=== PATIENT | male | born 1990 | race Caucasian/White ===

== ENCOUNTER 2016-09-23 06:38 | Day surgery (SDC) | payer OTHER ==
[2016-09-11 16:06] VITALS: BMI 25.0
[2016-09-23] MEDS ORDERED: ePHEDrine SULFATE 50 MG/1 ML AMPULE ONE (07:17)
[2016-09-23] MEDS ORDERED: MIDAZOLAM HCL 2 MG/2 ML SINGLE DOSE VIAL ONE ×2 (07:18)
[2016-09-23] MEDS ORDERED: PROPOFOL 20 ML ONE ×2 (07:18)
[2016-09-23] MEDS ORDERED: ROCURONIUM BROMIDE 50 MG/5 ML VIAL ONE (07:18)
[2016-09-23] MEDS ORDERED: PHENYLEPHRINE HCL 10 MG/1 ML SINGLE DOSE VIAL ONE (07:19)
[2016-09-23] MEDS ORDERED: LIDOCAINE HCL 2% (20ML MULTI-DOSE VIAL) NR ONE (07:26)
[2016-09-23] MEDS ORDERED: DESFLURANE GAS 240 ML BOTTLE IH ONE (07:26)
[2016-09-23] MEDS ORDERED: ACETAMINOPHEN INJECTION 100 ML IVPB ONE (07:27)
[2016-09-23] MEDS ORDERED: LIDOCAINE 1%/EPI 1:100000 (50 ML MULTI DOSE VIAL) ONE (07:48)
--- NOTE | 2016-09-23 07:53 | HP ---
Admitting History and Physical - Admission Chief Complaint: Nasal breathing problems, recucurrent sinus infections History Source: Patient, Medical Record Limitations to Obtaining History: No Limitations - Past Medical History ENT: Yes: Sinusitis Endocrine: Yes: Hypothyroidism - Smoking History Smoking history: Never smoked Have you smoked in the past 12 months: No - Alcohol/Substance Use Hx Alcohol Use: Yes ("MODERATELY") Home Medications - Allergies Allergies/Adverse Reactions: Allergies Allergy/AdvReac Type Severity Reaction Status Date / Time No Known Drug Allergies Allergy Verified 09/11/16 16:06 - Home Medications Home Medications: Ambulatory Orders Levothyroxine [Synthroid -] 125 mcg PO DAILY 09/11/16 Mometasone/Formoterol [Dulera 200 Mcg/5 Mcg Inhaler] 2 inh IH BID 09/11/16 Review of Systems - Review of Systems Constitutional: reports: No Symptoms Eyes: reports: No Symptoms HENT: reports: Nasal Congestion Neck: reports: No Symptoms Cardiovascular: reports: No Symptoms Respiratory: reports: No Symptoms Gastrointestinal: reports: No Symptoms Genitourinary: reports: No Symptoms Musculoskeletal: reports: No Symptoms Integumentary: reports: No Symptoms Neurological: reports: No Symptoms Endocrine: reports: No Symptoms Hematology/Lymphatic: reports: No Symptoms Physical Examination Vital Signs: Vital Signs Temperature 97.6 F 09/23/16 07:10 Pulse Rate 65 09/23/16 07:10 Respiratory Rate 20 09/23/16 07:10 Blood Pressure 113/66 09/23/16 07:10 O2 Sat by Pulse Oximetry (%) 99 09/23/16 07:12 Constitutional: Yes: Well Nourished, No Distress, Calm Eyes: Yes: WNL, Conjunctiva Clear HENT: Yes: WNL, Other (DNS, turbinate hypertrophy) Neck: Yes: WNL Cardiovascular: Yes: WNL Respiratory: Yes: WNL Gastrointestinal: Yes: WNL Extremities: Yes: WNL Integumentary: Yes: WNL Neurological: Yes: WNL ...Motor Strength: WNL Psychiatric: Yes: WNL Problem List - Problems (1) Chronic sinusitis Assessment/Plan: For surgical improvement in sinus problems today. Code(s): J32.9 - CHRONIC SINUSITIS, UNSPECIFIED Qualifiers: Sinusitis location: pansinusitis Qualified Code(s): J32.4 - Chronic pansinusitis Assessment/Plan For OR procedure today
[2016-09-23] MEDS ORDERED: COCAINE HCL 4% TOPICAL SOLUTION 4 ML BOTTLE TP ONE ×2 (08:12→08:46)
[2016-09-23] MEDS ORDERED: ceFAZolin SODIUM 1 GM VIAL IVPB ONE (08:43)
[2016-09-23] MEDS ORDERED: LIDOCAINE 1%/EPI 1:100000 (50 ML MULTI DOSE VIAL) INF ONE (08:45)
[2016-09-23] MEDS ORDERED: ONDANSETRON 4 MG/2 ML VIAL IVPUSH PRN (10:06)
[2016-09-23] MEDS ORDERED: PROMETHAZINE HCL 25 MG/1 ML VIAL IVPUSH PRN (10:06)
[2016-09-23] MEDS ORDERED: oxyCODONE HCL 5 MG TABLET PO PRN (10:06)
[2016-09-23] MEDS ORDERED: LACTATED RINGERS SOLUTION 1,000 ML IV SCH (10:15)
[2016-09-23 10:53] VITALS: TEMP 98.2
[2016-09-23] MEDS ORDERED: oxyCODONE HCL 5 MG TABLET ONE (11:55)
[2016-09-23 12:56] VITALS: BP 131/78; PULSE 72
--- NOTE | 2016-09-24 15:05 | PATH ---
Surgical Pathology Report Patient Name: UMAIR VASQUEZ Med. Rec. #: [id number] /Age/Gender: 1990 (Age: 25) / M Account: [id number] Location: [facility] Taken: 09/23/2016 Received: 09/23/2016 Reported: 09/24/2016 Physicians: Kvng Sage M.D. Specimen(s) Received A: RIGHT ETHMOID TISSUE B: BILATERAL ETHMOID & MAXILLARY SINUS Clinical History Deviated nasal septum Final Diagnosis A. RIGHT ETHMOID, ETHMOIDECTOMY: BENIGN SINONASAL MUCOSA WITH FOCAL ACTIVE AND CHRONIC INFLAMMATION; FRAGMENTS OF SCLEROTIC APPEARING BONE. B. BILATERAL ETHMOID AND MAXILLARY SINUS, MAXILLARY ANTROSTOMY, ETHMOIDECTOMY: BENIGN SINONASAL MUCOSA WITH ACUTE AND CHRONIC INFLAMMATION; SMALL FRAGMENTS OF UNREMARKABLE BONE. Electronically Signed Antonio Myers M.D. Gross Description A. Received in formalin labeled "right ethmoid" is a 0.9 x 0.6 x 0.1 cm lujan irregular portion of cartilage. The specimen is bisected and entirely submitted in one cassette. B. Received in formalin labeled "bilateral ethmoid and maxillary sinus" is a 2.0 x 1.3 x 0.2 cm aggregate of lujan tissue fragments. The formalin is filtered and the specimen is entirely submitted in one cassette, following decalcification. 09/23/201609/23/2016
--- NOTE | 2016-10-26 23:50 | OP ---
DATE OF OPERATION: 09/23/2016 PREOPERATIVE DIAGNOSIS: Deviated septum, turbinate hypertrophy, chronic sinusitis. POSTOPERATIVE DIAGNOSIS: Deviated septum, turbinate hypertrophy, chronic sinusitis. PROCEDURE: Bilateral endoscopic __anterior___ ethmoidectomy, bilateral maxillary antrostomy tissue removal, bilateral frontal sinus balloon Sinuplasty, and sinus navigation inferior turbinate outfracture and cautery. SURGEON: Kvng Sage M.D. ANESTHESIA: General. INDICATION FOR OPERATION: This is a 26-year-old with chronic sinus problems, nasal congestion, who has had multiple courses of antibiotics, nasal spray, decongestant, and has not resolved the infection. DESCRIPTION OF PROCEDURE: Patient was brought into the operating room, placed under general anesthesia. The nose was decongested with 4% cocaine on pledgets and injected with 1% lidocaine with 1:100,000 epinephrine to the lateral nasal wall, inferior turbinates, and septum. A [employer] navigation contractor was calibrated on him, after being prepped and draped, and then his nose was examined. During examination, his deviated septum was noted; however, it appears that the middle meatus and the path of the frontal sinus was open enough to go around it, so a septoplasty was not performed. The frontal sinus seeker was introduced into the left side and pushing the middle turbinate medially, the frontal sinuses were cannulated, after which a Medtronic frontal guided balloon was placed up into the frontal sinus. Also note that the seeker used also a guided instrument, 2 separate insufflations of the balloon was performed and then a cottonoid was instilled into the frontal recess. The opposite side, right side, was approached in the same manner with the seeker, it was guided, and the front of the balloon was placed into the frontal sinus, and 2 separate dilations were performed, and a cottonoid was placed in that _frontal recess____. The uncinate on the left side was removed using a Avalon elevator, then an anterior ethmoidectomy was performed using the microdebrider back to the level of the ground lamella. The ostium was cannulated with a curved guided beaded suction, then a curved microdebrider was used to remove tissue from the maxillary antrum and to widen the ostia anteriorly and inferiorly with the microdebrider blade. The cottonoid was reinstilled into the ethmoid cavity, and the right side middle turbinate was medialized with the Avalon, and then the uncinate was resected using the straight blade. The anterior ethmoidectomy was performed to the level of the ground lamella and the right maxillary ostia was cannulated with the curved beaded suction which was guided, and the guided microdebrider blade was used to remove tissue from the maxillary antrum and widen the ostia inferiorly and anteriorly. The cottonoid was placed into the right ethmoid cavity. Then the inferior turbinates were outfractured with a long nasal speculum, and a bipolar turbinate cautery was used to cauterize by inferior turbinates, first the left than the right, with 3 separate submucosal passes with a setting of 4. After which, the nose was suctioned and a nasal port packing was placed in each ethmoid cavity. The patient was then extubated in the operating room and brought to recovery room in stable condition. Sulaiman [id number] MTDD
== END 2016-09-23 12:55 | disposition home or self-care (01) ==
LOC: JASU-SURG 06:38
PROVIDERS: ATTEND Otolaryngology
PROC: 8E09XBG Computer Assisted Procedure of Head and Neck Region, With Computerized Tomography (ICD-10-PCS; 2016-09-23)
PROC: 099R4ZZ Drainage of Left Maxillary Sinus, Percutaneous Endoscopic Approach (ICD-10-PCS; 2016-09-23)
PROC: 099Q4ZZ Drainage of Right Maxillary Sinus, Percutaneous Endoscopic Approach (ICD-10-PCS; 2016-09-23)
PROC: 09QS4ZZ Repair Right Frontal Sinus, Percutaneous Endoscopic Approach (ICD-10-PCS; 2016-09-23)
PROC: 09QT4ZZ Repair Left Frontal Sinus, Percutaneous Endoscopic Approach (ICD-10-PCS; 2016-09-23)
PROC: 09SL8ZZ Reposition Nasal Turbinate, Via Natural or Artificial Opening Endoscopic (ICD-10-PCS; 2016-09-23)
PROC: 095L8ZZ Destruction of Nasal Turbinate, Via Natural or Artificial Opening Endoscopic (ICD-10-PCS; 2016-09-23)
PROC: 8E09XBZ Computer Assisted Procedure of Head and Neck Region (ICD-10-PCS; principal; 2016-09-23 08:00)
PROC: 09BV4ZZ Excision of Left Ethmoid Sinus, Percutaneous Endoscopic Approach (ICD-10-PCS; 2016-09-23 08:00)
PROC: 09BU4ZZ Excision of Right Ethmoid Sinus, Percutaneous Endoscopic Approach (ICD-10-PCS; 2016-09-23 08:00)
DX: J34.2 Deviated nasal septum (principal); J32.9 Chronic sinusitis, unspecified; J34.3 Hypertrophy of nasal turbinates
CPT/HCPCS: 88304-TC; 94760

== ENCOUNTER 2017-07-25 13:54 | Emergency (ER) | payer BC, OTHER ==
--- NOTE | 2017-07-25 13:55 | PDOC ---
History of Present Illness - History of Present Illness Initial Comments: 07/25/17 16:01 Physical exam: Alert and oriented well-developed well-nourished no acute distress cheerful and cooperative Afebrile, vital signs normal No pallor or icterus. PERRLA, ENT clear Neck supple without bruit mass or nodes Chest clear CV regular without murmur rub or gallop Abdomen nondistended, normal bowel sounds. There is mild to moderate tenderness in the left mid abdomen and left lower quadrant to deep palpation, but no guarding or rebound. There is no CVAT. There is no tenderness along the costal margin or the pelvis. : Testes descended bilaterally, without mass or tenderness. No hernias palpable in the inguinal area. No discharge Neurological intact Skin clear, no rash, adequate turgor and wet mucous membranes Extremities no CCE Impression: The tenderness appears to be left mid abdomen and left lower quadrant. Onset was after a day of vigorous exercise, and the patient runs 5, there is twice daily as well as engaging in weight training. There is the possibility of muscle pain of the abdominal wall. Other possibilities acute diverticulitis, unusual presentation of appendicitis, kidney stone or urinary tract abnormality, gastroenteritis, gastritis, pancreatitis. Plan: Labs and CT. Further medical evaluation treatment depending on results. <Usman Navarrete J - Last Filed: 07/25/17 18:33> - General History Source: Patient, Old Records Exam Limitations: No Limitations - History of Present Illness Initial Comments: 07/25/17 15:11 Chief Complaint: Left lower quadrant pain History of Present Illness: The patient presents with multiple days of left lower quadrant pain that began after a bowel movement. The patient describes the pain as a moderate ache that is constant, but worse with any kind of movement and with palpation of his LLQ, and occasionally radiates to his left testicle. He denies any alleviating factors or taking anything for his pain. The patient denies any heavy lifting prior to the pain, but reports doing some running the day before onset. The patient initially went to Urgent Care for his symptoms but was sent here for further imaging. Review of Systems: He denies any injury to the LLQ or testicle. He denies any associated nausea, vomiting, diarrhea, or constipation. He denies any melena or hematochezia. The patient denies any fevers, chills, cough, shortness of breath , chest pain, hematuria, dysuria, urgency, or hesitancy. Past Medical History: The patient has hx of asthma and hypothyroidism (on synthroid). In September, the patient had a sinectomy of all 6 sinuses for recurrent sinus infections and deviated septum. Surgical History: The patient denies history of any abdominal or kidney surgeries. He denies any colonoscopies. Social History: The patient is very active and runs and lift weights daily. He reports social alcohol use and occasional marijuana use. Denies hx of IV drug use. He denies tobacco use. 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) - Suicide/Smoking/Psychosocial Hx Smoking History: Never smoked Have you smoked in the past 12 months: No Hx Alcohol Use: Yes ("MODERATELY") Drug/Substance Use Hx: Yes (POT ON 09/05/16) Substance Use Type: Alcohol, Marijuana Hx Substance Use Treatment: No <Usman Navarrete - Last Filed: 07/25/17 18:33> <Vickie Peña - Last Filed: 07/25/17 19:33> - Past Medical History Allergies/Adverse Reactions: Allergies Allergy/AdvReac Type Severity Reaction Status Date / Time No Known Drug Allergies Allergy Verified 07/25/17 13:55 Home Medications: Ambulatory Orders Levothyroxine [Synthroid -] 125 mcg PO DAILY 09/11/16 Fluticasone/Vilanterol [Breo Ellipta 100-25 Mcg INH] 1 each IH DAILY 07/25/17 Review of Systems - Review of Systems Able to Perform ROS?: Yes All Other Systems: Reviewed and Negative <Vickie Peña - Last Filed: 07/25/17 19:33> *Physical Exam - Vital Signs Last Vital Signs Temp Pulse Resp BP Pulse Ox 99.3 F 85 18 118/71 98 07/25/17 13:55 07/25/17 13:55 07/25/17 13:55 07/25/17 13:55 07/25/17 13:55 <Vickie Peña - Last Filed: 07/25/17 19:33> ED Treatment Course - LABORATORY CBC & Chemistry Diagram: 07/25/17 14:10 07/25/17 14:10 <LupeJamisonUsman schafer - Last Filed: 07/25/17 18:33> - LABORATORY CBC & Chemistry Diagram: 07/25/17 14:10 07/25/17 14:10 - ADDITIONAL ORDERS Additional order review: Laboratory Results 07/25/17 07/25/17 14:10 14:00 Sodium 134 L Potassium 4.5 Chloride 102 Carbon Dioxide 26 Anion Gap 6 L BUN 10 Creatinine 1.3 Creat Clearance w eGFR > 60 Random Glucose 113 H Calcium 9.8 Total Bilirubin 1.3 H AST 28 ALT 32 Alkaline Phosphatase 59 Total Protein 7.1 Albumin 4.1 Urine Color Liz Urine Appearance Clear Urine pH 6.0 Ur Specific [place] 1.025 Urine Protein Trace Urine Glucose (UA) Negative Urine Ketones Negative Urine Blood Trace-intact H Urine Nitrite Negative Urine Bilirubin 1+ H Urine Urobilinogen 0.2 Ur Leukocyte Esterase Negative Urine RBC 0-1 Ur Epithelial Cells Rare 07/25/17 14:10 RBC 5.50 MCV 87.2 MCHC 32.0 RDW 13.3 MPV 8.0 Neutrophils % 65.6 Lymphocytes % 21.2 Monocytes % 8.4 Eosinophils % 1.4 Basophils % 3.4 H - RADIOLOGY Radiograph Interpretation: 07/25/17 19:29 Abdomen/Pelvic CT IMPRESSION: Diffuse thickening of the descending colon and to lesser degree involving the rectosigmoid colon concerning for inflammatory/infectious colitis. Small amount of free fluid in the pelvis. In addition, there are multiple fluid filled loops of jejunum with wall thickening concerning for inflammatory/infectious enteritis. No evidence of small bowel obstruction or mass. The appendix is not confidently identified. However, there is no secondary inflammatory changes in the right lower quadrant to suggest acute appendicitis. THIS DOCUMENT HAS BEEN ELECTRONICALLY SIGNED Romie Hope MD - Medications Given in the ED: ED Medications Discontinued Medications Generic Name Dose Route Start Last Admin Trade Name Freq PRN Reason Stop Dose Admin Sodium Chloride 1,000 mls @ 1,000 mls/hr 07/25/17 13:56 07/25/17 14:15 Normal Saline - IV 07/25/17 14:55 1,000 mls/hr ASDIR STA Administration <Vickie Peña - Last Filed: 07/25/17 19:33> Medical Decision Making - Medical Decision Making 07/25/17 18:32 White blood count is 13.7, otherwise CBC and chemistries are without significant abnormalities. Urinalysis is clear CT with contrast shows colitis. The patient denies blood or mucus in the stool. This is probably viral in origin Instructed regarding bowel rest, Tylenol for pain, and follow up with plain clothes police officer. Patient is an no significant pain or other distress upon discharge, taking oral fluids well, and agrees to follow-up as directed. <Usman Navarrete - Last Filed: 07/25/17 18:33> *DC/Admit/Observation/Transfer - Discharge Dispostion Admit: No <Usman Navarrete - Last Filed: 07/25/17 18:33> - Attestations Scribe Attestion: 07/25/17 15:12 Documentation prepared by Vickie Peña, acting as regional medical director for Usman Ashby MD. <Vickie Peña - Last Filed: 07/25/17 19:33> Diagnosis at time of Disposition: Colitis - Discharge Dispostion Disposition: HOME Condition at time of disposition: Stable - Referrals Referrals: Emre Bañuelos MD [Staff Physician] - 1 week - Patient Instructions Printed Discharge Instructions: DI for Colitis Additional Instructions: Clear liquid diet. Rest of the intestines. Tylenol for pain. See plain clothes police officer for further evaluation and treatment if symptoms persist 1 week. Return to ER if symptoms worsen, if there is fever, increased pain, nausea, vomiting, diarrhea. This is likely due to a virus that well improve on its own. However there are many other possible causes and if the symptoms persist it is important to see a plain clothes police officer for further diagnosis and treatment - Post Discharge Activity
[2017-07-25] MEDS ORDERED: SODIUM CHLORIDE 1,000 ML IV STA (13:56)
[2017-07-25 14:01] VITALS: BP 118/71; PULSE 85; TEMP 99.3; BMI 25.0
[2017-07-25 14:10] LABS: URINE APPEARANCE Clear; URINE BILIRUBIN 1+ (NEGATIVE); URINE BLOOD Trace-intact (NEGATIVE); URINE COLOR AMBER; URINE GLUCOSE (UA) Negative (NEGATIVE); URINE KETONE Negative (NEGATIVE); URINE NITRITE Negative (NEGATIVE); URINE PROTEIN Trace (NEGATIVE); URINE UROBILINOGEN 0.2 (0.2-1.0)
[2017-07-25 14:13] LABS: EPI CELLS RARE /HPF; URINE RBC 0-1 /hpf (0-3)
[2017-07-25 14:21] LABS: BASO % 3.4 % (0-2.0); EOS % 1.4 % (0-4.5); HEMOGLOBIN 15.3 GM/dl (11.7-16.9); LYMPH % 21.2 % (8-40); MCH 27.9 pg (25.7-33.7); MEAN CELL VOLUME 87.2 fl (80-96); MONO % 8.4 % (3.8-10.2); NEUT % 65.6 % (42.8-82.8); PLATELET COUNT 226 K/MM3 (134-434); RDW 13.3 % (11.9-15.9); WHITE BLOOD COUNT 13.7 K/mm3 (4.0-10.8)
[2017-07-25 14:30] LABS: ALBUMIN 4.1 g/dl (3.5-5.0); ALK PHOS 59 U/L (32-92); ANION GAP 6 (8-16); BILIRUBIN,TOTAL 1.3 mg/dl (0.2-1.0); BLOOD UREA NITROGEN 10 mg/dl (7-18); CALCIUM 9.8 mg/dl (8.4-10.2); CHLORIDE 102 mmol/L (98-107); CO2 26 mmol/L (22-28); CREATININE 1.3 mg/dl (0.6-1.3); GLUCOSE,RANDOM 113 mg/dl (74-106); POTASSIUM 4.5 mmol/L (3.5-5.1); SGOT/AST 28 U/L (10-42); SGPT/ALT 32 U/L (10-40); SODIUM 134 mmol/L (136-145); TOT PROT 7.1 g/dl (6.4-8.3)
--- NOTE | 2017-07-27 06:50 | PDOC ---
*Physical Exam - Vital Signs Last Vital Signs Temp Pulse Resp BP Pulse Ox 99.3 F 85 18 118/71 98 07/25/17 13:55 07/25/17 13:55 07/25/17 13:55 07/25/17 13:55 07/25/17 13:55 ED Treatment Course - LABORATORY CBC & Chemistry Diagram: 07/25/17 14:10 07/25/17 14:10 - ADDITIONAL ORDERS Additional order review: 07/25/17 14:10 RBC 5.50 MCV 87.2 MCHC 32.0 RDW 13.3 MPV 8.0 Neutrophils % 65.6 Lymphocytes % 21.2 Monocytes % 8.4 Eosinophils % 1.4 Basophils % 3.4 H - Medications Given in the ED: ED Medications Discontinued Medications Generic Name Dose Route Start Last Admin Trade Name Freq PRN Reason Stop Dose Admin Sodium Chloride 1,000 mls @ 1,000 mls/hr 07/25/17 13:56 07/25/17 14:15 Normal Saline - IV 07/25/17 14:55 1,000 mls/hr ASDIR STA Administration Progress Note - Progress Note Progress Note: Patient called back to the to be made aware of his CAT scan result. Patient CAT scan was read by the radiologist as revealing very small approximate 1 x 1.4 cm solid tissue mass along the lateral wall of the colon. Called patient to make him aware of the finding and sent him a stress to patient was important that he follow-up that finding with his primary care doctor or the retail store assistant that we referred him to *DC/Admit/Observation/Transfer Diagnosis at time of Disposition: Colitis - Discharge Dispostion Disposition: HOME Condition at time of disposition: Stable - Referrals Referrals: Emre Bañuelos MD [Staff Physician] - 1 week - Patient Instructions Printed Discharge Instructions: DI for Colitis Additional Instructions: Clear liquid diet. Rest of the intestines. Tylenol for pain. See retail store assistant for further evaluation and treatment if symptoms persist 1 week. Return to ER if symptoms worsen, if there is fever, increased pain, nausea, vomiting, diarrhea. This is likely due to a virus that well improve on its own. However there are many other possible causes and if the symptoms persist it is important to see a retail store assistant for further diagnosis and treatment - Post Discharge Activity
== END 2017-07-25 18:46 | disposition home or self-care (01) ==
LOC: FER 13:54 → SUPCPDRO 13:54 → FER 18:46
PROC: 3E0337Z Introduction of Electrolytic and Water Balance Substance into Peripheral Vein, Percutaneous Approach (ICD-10-PCS; principal; 2017-07-25)
DX: K52.9 Noninfective gastroenteritis and colitis, unspecified (principal); E07.9 Disorder of thyroid, unspecified; J45.909 Unspecified asthma, uncomplicated
CPT/HCPCS: 36415; 74177-TC; 80053; 81003; 81015; 83690; 85025; 99284-25